=== PATIENT | female | born 1975 | race Caucasian/White ===

== ENCOUNTER → 2017-10-10 | Outpatient (CLI) | payer OTHER ==
[~2017-10-10] MED LIST: ZOFRAN ODT4 MG SL
== END | disposition home or self-care (01) ==
LOC: LAB 13:29
DX: R50.9 Fever, unspecified (principal); R05 Cough; M25.50 Pain in unspecified joint

== ENCOUNTER → 2018-02-05 | Outpatient (CLI) | payer OTHER | END | disposition home or self-care (01) | LOC: US 13:25 | DX: N94.10 Unspecified dyspareunia (principal); R10.2 Pelvic and perineal pain ==

== ENCOUNTER → 2022-03-15 | Outpatient (CLI) | payer OTHER | END | disposition home or self-care (01) | LOC: RAD 17:03 | PROVIDERS: ATTEND Nurse Practitioner Family | DX: U07.1 COVID-19 (principal); M54.50 Low back pain, unspecified; N92.1 Excessive and frequent menstruation with irregular cycle ==

== ENCOUNTER → 2022-03-16 | Outpatient (CLI) | payer OTHER | END | disposition home or self-care (01) | LOC: CT 10:10 | PROVIDERS: ATTEND Nurse Practitioner Family | DX: R91.1 Solitary pulmonary nodule (principal); R93.89 Abnormal findings on diagnostic imaging of other specified body structures ==

== ENCOUNTER → 2022-04-04 | Outpatient (CLI) | payer OTHER | END | disposition home or self-care (01) | LOC: US 10:46 | PROVIDERS: ATTEND Nurse Practitioner Family | DX: N85.2 Hypertrophy of uterus (principal); N92.1 Excessive and frequent menstruation with irregular cycle; M54.50 Low back pain, unspecified ==